=== PATIENT | male | born 1960 | race Caucasian/White ===

== ENCOUNTER 2022-06-01 13:49 | Day surgery (SDC) | payer OTHER ==
[~2022-06-01] VITALS: Ht 162.6 cm; Wt 85.3 kg
[~2022-06-01 13:49] MED LIST: ATOR40TA75 PO; ECOT81TA5 PO; GLIM4TAB5 PO; LIDOCAINE 2% 100MG/5ML SDV (FOR ANES.) As Ordered ONE; LISI10TA22 PO; METF10004 PO; NS 1,000 ML IV ONE; OMEP-173 PO; STEG15TA PO; TAMS1CAP17 PO; fentaNYL 100 MCG/2 ML INJECTION As Ordered ONE; propofoL 200 MG/20 ML VIAL As Ordered ONE
[2022-06-01] MEDS ORDERED: propofoL 200 MG/20 ML VIAL As Ordered ONE (15:38)
[2022-06-01 16:00] VITALS: BP 135/74
== END 2022-06-01 16:17 | disposition home or self-care (01) ==
LOC: M OPP 13:49
PROVIDERS: ATTEND Internal Medicine Gastroenterology
DX: R12 Heartburn (principal); K21.00 Gastro-esophageal reflux disease with esophagitis, without bleeding; K29.70 Gastritis, unspecified, without bleeding; E78.5 Hyperlipidemia, unspecified; E11.9 Type 2 diabetes mellitus without complications; Z79.82 Long term (current) use of aspirin; Z79.84 Long term (current) use of oral hypoglycemic drugs; Z79.899 Other long term (current) drug therapy
CPT/HCPCS: 43239; 87428; 88305; J3010